=== PATIENT | female | born 1965 ===

== ENCOUNTER 2017-08-11 06:32 | Day surgery (SDC) | payer OTHER ==
[~2017-08-11 06:32] MED LIST: ASPIR 8181 MG PO; LOSARTAN-HCTZ1 EACH PO; METROPOLOL PO
[2017-08-11] MEDS ORDERED: PERCOCET 5-3251 EACH PO (12:04)
[2017-08-11] MEDS ORDERED: RECTICARE30 GM TOP (12:04)
== END 2017-08-11 16:30 | disposition home or self-care (01) ==
LOC: CIR.AMB 06:32
DX: K64.8 Other hemorrhoids (principal); K64.4 Residual hemorrhoidal skin tags

== ENCOUNTER 2017-11-25 13:42 | Day surgery (SDC) | payer OTHER ==
[~2017-11-25 13:42] MED LIST changes: +PERCOCET 5-3251 EACH PO; +RECTICARE30 GM TOP
== END 2017-11-25 17:56 | disposition home or self-care (01) ==
LOC: AMB-ENDOS 13:42
DX: D12.0 Benign neoplasm of cecum (principal); K57.30 Diverticulosis of large intestine without perforation or abscess without bleeding; K64.8 Other hemorrhoids